=== PATIENT | female | born 1995 | race Asian ===

== ENCOUNTER 2018-09-21 03:22 | Emergency (ER) | payer MEDICAID ==
[~2018-09-21] VITALS: Ht 152.4 cm; Wt 42.0 kg
[~2018-09-21 03:22] MED LIST: DIAZ1KIT2 PR; DIVA125T2 PO; LORA5SOL PO; TOPI25CA5 PO
--- NOTE | 2018-09-21 03:35 | NUR ---
BIB [facility] FROM HOME PT HAD 5-6 SEIZURES TODAY LAST ON APPROX 0250 AND MOM ADMINISTERED DIAZEPAN AT THAT TIME. PER EMS ON THEIR ARRIVAL PT POST ICTAL AND SEDATED,PT HAS H/X OF SEIZURES. FSBS-92, B/P-90/50, 97% R/A. MONITORS APPLIED, SIDERAILS UP X2, CALL LIGHT WITHIN REACH
--- NOTE | 2018-09-21 03:40 | NUR ---
PT TO CT
--- NOTE | 2018-09-21 03:57 | NUR ---
URINE SAMPLE TAKEN TO LAB
[2018-09-21 04:30] LABS: MEAN CORPUSCULAR HEMOGLOBIN 25.3 pg (27.0-34.8); MEAN CORPUSCULAR HGB CONC 32.2 g/dL (32.4-35.8); MEAN CORPUSCULAR VOLUME 78.5 fL (80-100); MEAN PLATELET VOLUME 9.1 fL (7.4-10.4); PLATELET COUNT 227 x10^3/uL (130-400); RED BLOOD COUNT 5.09 x10^6/uL (3.82-5.3); RED CELL DISTRIBUTION WIDTH 16.2 % (9.6-15.2)
[2018-09-21 04:30] LABS: CULTURE INDICATED? YES; MICROSCOPIC INDICATED
[2018-09-21] MEDS ORDERED: SODIUM CHLORIDE FLUSH 10ML SYR IVF ONE (04:30)
[2018-09-21 04:36] VITALS: BP 105/66
--- NOTE | 2018-09-21 04:36 | NUR ---
PT RESTING CALMLY, MOM AT BEDSIDE COMFORTING HER, MONITORS IN PLACE, CALL LIGHT WITHIN REACH. AWAITING CT AND LAB RESULTS
[2018-09-21 04:37] LABS: ALBUMIN 3.6 g/dL (3.4-5.0); ANION GAP 7 mmol/L (5-15); CALCIUM 9.3 mg/dL (8.5-10.1); CHLORIDE 112 mmol/L (98-107); CREATININE 0.67 mg/dL (0.55-1.02)
[2018-09-21 04:45] LABS: MD YES
[2018-09-21 04:48] LABS: ANISOCYTOSIS 1+; BAND#(MANUAL) 0.27 x10^3/uL; BANDS%(MANUAL) 2 % (0-7); EOS#(MANUAL) 0.27 x10^3/uL (0.0-0.4); EOS% (MANUAL) 2 % (1-7); LYMPH#(MANUAL) 6.71 x10^3/uL (1-3.4); LYMPHS% (MANUAL) 49 % (22-44); MICROCYTOSIS 1+; MONOS#(MANUAL) 0.69 x10^3/uL (0.3-2.7); MONOS% (MANUAL) 5 % (2-9); POLYCHROMASIA 1+; SEG#(MANUAL) 5.75 x10^3/uL (1.8-6.8); SEGS% (MANUAL) 42 % (42-75)
[2018-09-21 04:49] LABS: <PLATELET ESTIMATE> ADEQUATE; <PLT MORPHOLOGY> NORMAL PLT MORPH
== END 2018-09-21 05:19 | disposition home or self-care (01) ==
LOC: ED 05:00
DX: G40.409 Other generalized epilepsy and epileptic syndromes, not intractable, without status epilepticus (principal)
CPT/HCPCS: 36415; 70450; 71045; 80048; 81001; 82040; 84703; 85025; 87086; 99284

== ENCOUNTER 2018-10-03 20:33 | Emergency (ER) | payer MEDICAID ==
[~2018-10-03] VITALS: Ht 152.4 cm; Wt 42.0 kg
[2018-10-03] MEDS ORDERED: [UNRECOGNIZED DRUG - OTHER] (20:44)
[2018-10-03] MEDS ORDERED: SODIUM CHLORIDE FLUSH 10ML SYR IVF ONE (21:00)
[2018-10-03 21:07] LABS: BASOPHILS # (AUTO) 0.03 x10^3/uL (0-0.1); BASOPHILS % (AUTO) 0 % (0-1); EOSINOPHILS # (AUTO) 0.25 x10^3/uL (0-0.4); EOSINOPHILS % (AUTO) 3 % (1-7); LYMPHOCYTES # (AUTO) 3.22 x10^3/uL (1-3.4); LYMPHOCYTES % (AUTO) 37 % (22-44); MD NO; MEAN CORPUSCULAR HEMOGLOBIN 25.1 pg (27.0-34.8); MEAN CORPUSCULAR HGB CONC 32.5 g/dL (32.4-35.8); MEAN CORPUSCULAR VOLUME 77.3 fL (80-100); MEAN PLATELET VOLUME 8.2 fL (7.4-10.4); MONOCYTES # (AUTO) 0.55 x10^3/uL (0.2-0.8); MONOCYTES % (AUTO) 6 % (2-9); NEUTROPHILS # (AUTO) 4.68 x10^3/uL (1.8-6.8); NEUTROPHILS % (AUTO) 54 % (42-75); PLATELET COUNT 285 x10^3/uL (130-400); RED BLOOD COUNT 4.94 x10^6/uL (3.82-5.3); RED CELL DISTRIBUTION WIDTH 16.7 % (9.6-15.2)
--- NOTE | 2018-10-03 21:07 | NUR ---
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 PT HAS HX SEIZURES, PARENTS STATE THAT SHE HAS HAD INCREASING SEIZURES FOR PAST 3 DAYS SINCE STARTING ANTIBIOTIC FOR URI. 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 PT'S PARENTS STATE SHE HAS HAD AT LEAST 20 EPISODES OF ABNORMAL EYE MOVEMENTS TODAY. 3 EPISODES OBSERVED WHILE IN ED. EDMD VANBIBBER AT BEDSIDE. SEIZURE PRECAUTIONS IN PLACE.
[2018-10-03] MEDS ORDERED: LORazepam 2 MG/ML, 1ML ONE (21:11)
[2018-10-03 21:21] LABS: ALANINE AMINOTRANSFERASE 45 U/L (12-78); ALBUMIN 3.5 g/dL (3.4-5.0); ANION GAP 7 mmol/L (5-15); CALCIUM 9.1 mg/dL (8.5-10.1); CHLORIDE 108 mmol/L (98-107); CREATININE 0.66 mg/dL (0.55-1.02)
[2018-10-03 21:24] LABS: ALKALINE PHOSPHATASE 91 U/L (45-117); TOTAL PROTEIN 8.3 g/dL (6.4-8.2)
[2018-10-03 21:30] LABS: BILIRUBIN,TOTAL < 0.1 mg/dL (0.2-1.0)
[2018-10-03] MEDS ORDERED: LORazepam 2 MG/ML, 1ML IM ONE (21:30)
[2018-10-03] MEDS ORDERED: LORazepam 2 MG/ML, 1ML IM PRN (21:30)
--- NOTE | 2018-10-03 21:53 | NUR ---
pt sleeping at this time, resps even and unlabored, all monitors in place. nsr on engine monitor with no ectopy. per EDMD, pt does not need PIV at this time, pt has poor vasculature. mother at bedside. no seizure activity noted since ativan admin.
--- NOTE | 2018-10-03 22:56 | NUR ---
pt straight cath'd sterile technique maintained. urine sample walked to lab. pt tolerated well. parents at bedside. no subsequent seizure activity noted since ativan admin. EDMD Vanbibber notified bp 90/44 at this time, HR 60's sinus rhythm with no ectopy. pt sleeping, resps even and unlabored. awaiting ua results and dispo. no orders received from .
[2018-10-03 23:10] LABS: MICROSCOPIC AUTO
[2018-10-03 23:11] LABS: CULTURE INDICATED? NO
[2018-10-03 23:27] VITALS: BP 88/46
--- NOTE | 2018-10-03 23:38 | NUR ---
EDMD VANBIBBER NOTIFIED BP IS 88/46, PT SLEEPING, RESPS EVEN AND UNLABORED. PARENTS AT BEDSIDE. EDMD VANBIBBER AT BEDSIDE TO UPDATE PARENTS WITH RESULTS AND POC.
--- NOTE | 2018-10-03 23:55 | NUR ---
report given to RN [place] at bedside.
== END 2018-10-04 00:27 | disposition home or self-care (01) ==
LOC: ED 21:31
DX: G40.909 Epilepsy, unspecified, not intractable, without status epilepticus (principal)
CPT/HCPCS: 36415; 80053; 80164; 81001; 85025; 93005; 96372; 99284; J2060